=== PATIENT | female | born 1955 | race Two or more races ===

== ENCOUNTER 2024-03-14 07:46 | Emergency (ER) | payer MEDICARE, SELFPAY ==
[2024-03-14 08:06] VITALS: BP 179/77; PULSE 69; RESP 16; TEMP 36.8; O2SAT 95; BMI 32.0
--- NOTE | 2024-03-14 08:12 | XR_ITS ---
Examination: CT abdomen and pelvis without contrast. Coronal 3-D reconstructions. Sagittal 2-D reconstructions. Date and time of exam:March 14, 2024 0833 hrs. Indications: Left flank pain and vomiting beginning last night CTDI: vol (mGy): 10.9 DLP: (mGycm): 582 Technique: Axial images of the abdomen have been obtained, 3 mm slice thickness Intravenous contrast material has not been administered. Low dose protocols were performed. One or more of the following dose reduction techniques were used; automated exposure control, adjustment of the mA and/or KV according to patient size, use of iterative reconstruction technique. Findings: Diffuse fatty infiltration throughout the liver no focal liver or splenic lesions No gallstones No pancreatic mass 4 mm lower pole left renal calculus No hydronephrosis or ureteral calculi Colonic diverticulosis No bladder mass or bladder calculi Normal appendix No bowel obstruction Impression: 4 mm lower pole left renal calculus No hydronephrosis or ureteral calculi
[2024-03-14] MEDS: HYDROcodone/APAP 5/325 TABLET 1 TAB PO (08:27)
[2024-03-14] MEDS: KETOROLAC INJ 30 MG/ML VIAL IM (08:27)
[2024-03-14] MEDS: ONDANSETRON ODT 4 MG TABRAP PO (08:27)
[2024-03-14 09:23] LABS: Basophils % (Auto) 0 % (0-2.5); Eosinophils % (Auto) 0 % (0-10); Hematocrit 42.1 % (36.0-46.0); Hemoglobin 13.8 g/dL (12.0-16.0); Immature Granulocytes % (Auto) 0 % (0-0); Immature Granulocytes Auto 0.02 Thou/mm3 (0.00-0.00); Lymphocytes # (Auto) 1.6 Thou/mm3 (1.0-4.8); Lymphocytes % (Auto) 18 % (10-50); Mean Corpuscular HGB Conc 32.8 g/dl (31.0-37.0); Mean Corpuscular Volume 82 fL (80-100); Monocytes # (Auto) 0.3 Thou/mm3 (0.0-0.8); Monocytes % (Auto) 3 % (0-12); Neutrophils # (Auto) 7.4 Thou/mm3 (1.8-7.7); Neutrophils % (Auto) 79 % (37-80); Nucleated Red Blood Cell % 0 /100 WBC (0); Platelet Count 288 Thou/mm3 (140-440); RDW Standard Deviation 40.1 fL (36.4-46.3); Red Blood Count 5.11 Miln/mm3 (4.00-5.20); White Blood Count 9.4 Thou/mm3 (3.6-11.0)
[2024-03-14 09:51] LABS: Alanine Aminotransferase 22 U/L (10-49); Albumin, Serum 5.1 gm/dL (3.4-4.8); Albumin/Globulin Ratio 1.5 (1.2-2.2); Alkaline Phosphatase 101 U/L (46-116); Anion Gap 8 (7-16); Aspartate Amino Transferase 18 U/L (0-34); BUN/Creatinine Ratio 16 Ratio (12-20); Bilirubin,Total 0.6 mg/dL (0.3-1.2); Blood Urea Nitrogen 13 mg/dL (9-23); Calcium 9.5 mg/dL (8.3-10.6); Calcium (Corrected) 9.5 mg/dL (8.5-10.1); Carbon Dioxide 27.6 mMol/L (20.0-31.0); Chloride 100 mMol/L (98-107); Creatinine (Component) 0.8 mg/dL (0.6-1.3); Estimated Creatinine Clearance 65.7 mL/min (>60); Globulin 3.3 gm/dL (2.3-3.5); Glucose 214 mg/dL (74-106); Lipase 33 U/L (12-53); Osmolality,Calculated 278 (275-295); Potassium 3.9 mMol/L (3.4-5.1); Sodium 136 mMol/L (136-145); Total Protein 8.4 gm/dL (5.7-8.2); eGFR > 60 See Note
[2024-03-14 10:41] LABS: Collection Type, Urine Clean Catch
[2024-03-14 11:15] LABS: Amorphous Crystals,Urine Present (Absent); Bilirubin,Urine Negative (Negative); Blood,Urine Negative (Negative); Clarity,Urine Turbid (Clear/Hazy); Color,Urine Yellow (Lt Yel-Yel); Culture Indicated,Urine Not Indicated; Glucose, Urine 3+ (Negative); Ketones,Urine Negative (Negative); Leukocyte Esterase,Urine Positive (Negative); Nitrite,Urine Negative (Negative); PH,Urine 6.5 (5.0-7.0); Protein,Urine 2+ (Neg - Trace); RBC,Urine 1 /hpf (0-3); Squamous Epithelial Cell,Urine 13 /hpf (0-5); Transitional Epi Cells,Urine < 1 /hpf (0-5); Urobilinogen,Urine Negative mg/dL (0.0-1.0); WBC,Urine 1 /hpf (0-5)
--- NOTE | 2024-03-14 12:06 | PD.EDABDPN ---
ED Abdominal Pain RME/HPI General Chief Complaint: Abdominal Pain Stated complaint: LLQ ABD PAIN, VOMITING, LEFT BUTTOCK NUMB X 1830 Time seen by provider: 03/14/24 08:13 Arrival date/time: 03/14/24 07:46 68-year-old female presents emergency department complains of lower quadrant abdominal pain patient reports episode of vomiting and pain to her left side of her back and hip. Patient presenting started this morning. Patient ports no chest pain or shortness of breath Limitations: no limitations Related Data Home Medications ?Medication ?Instructions ?Recorded ?Confirmed Fish Oil/Borage/Flax/Om3,6,9#1 1 cap PO QDAY ##0 01/21/14 10/09/17 ([facility] 3-6-9) Cassandra Root * 250 mg PO QDAY #0 caps 01/21/14 10/09/17 Lecithin 1,200 mg PO QDAY ##0 01/21/14 10/09/17 Magnesium Amino Acid Chelate 133 mg PO QDAY ##0 01/21/14 10/09/17 (Magnesium) VITAMIN E MIXED (VITAMIN E) 400 iu PO QDAY ##0 01/21/14 10/09/17 black cohosh 40 mg tablet 200 mg PO QDAY ##0 01/21/14 10/09/17 calcium carbonate (Oyster Shell 333 mg PO QDAY ##0 01/21/14 10/09/17 Calcium) cyanocobalamin (vitamin B-12) 1,000 mcg PO QDAY #0 tabs 01/21/14 10/09/17 1,000 mcg tablet (Vitamin B-12) magnesium 200 mg tablet 400 mg PO QDAY #0 tabs 01/21/14 10/09/17 zinc 50 mg tablet (Zinc Chelated) ##0 01/21/14 Previous Rx's ?Medication ?Instructions ?Recorded amoxicillin 875 mg-potassium 1 tab PO Q12H #20 tabs 10/09/17 clavulanate 125 mg tablet (Augmentin) cyclobenzaprine 10 mg tablet 10 mg PO TID PRN muscle spasm 10 03/14/24 days #30 tab-caps ibuprofen 800 mg tablet 800 mg PO TID PRN pain #30 tabs 03/14/24 Allergies Allergy/AdvReac Type Severity Reaction Status Date / Time Sulfa (Sulfonamide Allergy Intermediate RASH AND Verified 03/14/24 07:48 Antibiotics) HIVES SMOKED OYSTERS Allergy Intermediate rash, Uncoded 03/14/24 07:48 itching Review of Systems Review of Systems Systems Reviewed: All systems reviewed, normal except as documented Constitutional Constitutional: Reports system reviewed and no additional complaints, except as documented, Denies fever(s) and Denies headache(s) Eyes Eyes: Reports system reviewed and no additional complaints, except as documented and Denies blurry vision ENT Ears, Nose, Mouth, and Throat: Reports system reviewed and no additional complaints, except as documented, Denies headache(s), Denies nasal congestion and Denies nasal discharge Cardiovascular Cardiovascular: Reports system reviewed and no additional complaints, except as documented, Denies chest pain and Denies dyspnea Respiratory Respiratory: Reports system reviewed and no additional complaints, except as documented, Denies chest congestion, Denies cough and Denies dyspnea Gastrointestinal Gastrointestinal: Reports system reviewed and no additional complaints, except as documented, Reports abdominal pain, Denies loose stools, Reports nausea and Reports vomiting Integumentary/Breasts Skin/Breast: Reports system reviewed and no additional complaints, except as documented and Denies rash Neurologic Neurologic: Reports system reviewed and no additional complaints, except as documented, Reports as per HPI and Denies headache(s) ED Exam General Limitations: Present no limitations General appearance: Present alert and in no apparent distress Head Head exam: Present atraumatic, normocephalic and normal inspection Eye Eye exam: Present normal appearance, PERRL and EOMI ENT ENT exam: Present normal exam, normal oropharynx and mucous membranes moist Neck Neck exam: Present normal inspection, full ROM and trachea midline Chest Chest inspection: Present normal inspection and symmetric chest wall rise Respiratory Respiratory exam: Present normal lung sounds bilaterally Cardiovascular Cardiovascular exam: Present regular rate, normal rhythm and normal heart sounds Abdominal Exam Abdominal exam: Present soft and normal bowel sounds; Absent distention, tenderness, Pradhan's sign or tenderness at McBurney's Point Abdominal tenderness: Absent RUQ or RLQ Extremities Exam Extremities exam: Present normal inspection and full ROM Back Exam Back exam: Present normal inspection and full ROM Neurological Exam Neurological exam: Present alert, oriented X3, CN II-XII intact, normal gait and reflexes normal; Absent motor sensory deficit Psychiatric Psychiatric exam: Present normal affect and normal mood Skin Skin exam: Present warm, dry, intact and normal color; Absent rash Course Quality Measures none Orders Category Date Time Status CT abdomen pelvis wo con Stat Exams 03/14/24 08:12 Completed CBC Stat Lab 03/14/24 09:12 Completed Comprehensive Metabolic Panel Stat Lab 03/14/24 09:12 Completed Lipase Stat Lab 03/14/24 09:12 Completed UA, C/S IF [Urinalysis, C/S if Indicated] Stat Lab 03/14/24 09:10 Completed HYDROcodone*/APAP 5/325 [[place] 5/325] Med 03/14/24 08:12 Discontinued 1 tab PO X1 ONE Ketorolac Inj [Toradol Inj] Med 03/14/24 08:12 Discontinued 30 mg IM X1 ONE Ondansetron Odt [Zofran Odt] Med 03/14/24 08:12 Discontinued 4 mg PO X1 ONE Vital Signs Vital signs: Vital Signs Temperature 98.2 F 03/14/24 08:06 Pulse Rate 69 03/14/24 08:06 Respiratory Rate 16 03/14/24 08:06 Blood Pressure 179/77 H 03/14/24 08:06 Pulse Oximetry (%) 95 03/14/24 08:06 Oxygen Delivery Method Room Air 03/14/24 08:06 O2 saturation 95% room air within normal limits Abdominal Pain MDM MDM Narrative MDM Narrative:: 68-year-old female presents emergency department complains of lower quadrant abdominal pain patient reports episode of vomiting and pain to her left side of her back and hip. Patient presenting started this morning. Patient reports no chest pain or shortness of breath. Patient reports no saddle anesthesia no loss of bowel or bladder patient wants a steady gait On exam patient well-appearing patient's not appear toxic Lab work and CT scan obtained no acute emergent findings noted Patient given medication here Time reevaluation patient reports she feels much better after medication Patient discharged home in no distress to follow-up with primary care doctor in the next 24 to 48 hours and for any worsening symptoms to return to the ER immediately Patient data External records reviewed:: [facility] previous records Clinical information provided by:: patient Social determinants that could affect healthcare access:: none Patient has the following chronic illnesses:: See history How is presenting disease/condition affected by chronic disease/condition?: uneffected by Evaluation data The following diagnostics were reviewed and interpreted by me:: lab results and radiology exam(s) Lab and/or radiology exams considered but not ordered:: Labs are obtained Interpretation Summary: By me Medications / Prescriptions Medications or Prescriptions considered but not ordered:: Given Medication administrations:: Medication Administration History Discontinued Medications Hydrocodone Bitart/Acetaminophen (Hydrocodone/Apap 5/325 Tablet) 1 tab PO X1 ONE Stop: 03/14/24 08:13 Last Admin: 03/14/24 08:27 Dose: 1 tab Documented By: DENICE Ketorolac Tromethamine (Ketorolac Inj 30 Mg/Ml Vial) 30 mg IM X1 ONE Stop: 03/14/24 08:13 Last Admin: 03/14/24 08:27 Dose: 30 mg Documented By: DENICE Ondansetron HCl (Ondansetron Odt 4 Mg Tabrap) 4 mg PO X1 ONE; Protocol Stop: 03/14/24 08:13 Last Admin: 03/14/24 08:27 Dose: 4 mg Documented By: DENICE Given Consultations Consultation(s) initiated? (list below): No Diagnosis Differential diagnosis abdominal pain: abdominal pain, acute appendicitis, gastroenteritis and pancreatitis Most likely diagnosis given after review of the tests above:: Abdominal pain Admission Indicated Admission indicated?: not indicated Admission Request Was there a request for admission?: No Disposition Plan Disposition Plan: Discharge Discharge Attestation Discharge Attestation: The patient and all family members were given an opportunity to ask questions and understood the discharge instructions. Discharge instructions specifically effects, indications for sooner follow up or return to the emergency department, and the expected course of current diagnosis. Patient condition: Stable Discharge Plan Plan Patient Disposition: HOME (Self Care) Disposition Comment: Stable Prescriptions/Referrals Prescriptions/Med Rec: New cyclobenzaprine 10 mg tablet 10 mg PO TID PRN (Reason: muscle spasm) 10 Days Qty: 30 0RF ibuprofen 800 mg tablet 800 mg PO TID PRN (Reason: pain) Qty: 30 0RF No Action cyanocobalamin (vitamin B-12) [Vitamin B-12] 1,000 MCG tablet 1,000 mcg PO QDAY Qty: 0 calcium carbonate [Oyster Shell Calcium] 1 TAB tablet 333 mg PO QDAY Qty: 0 zinc [Zinc Chelated] 50 MG tablet Qty: 0 magnesium 200 MG tablet 400 mg PO QDAY Qty: 0 black cohosh 40 MG tablet 200 mg PO QDAY Qty: 0 Fish Oil/Borage/Flax/Om3,6,9#1 ([facility] [place] [facility] 3-6-9) 400 MG capsule 1 cap PO QDAY Qty: 0 Cassandra Root * 250 MG capsule 250 mg PO QDAY Qty: 0 Lecithin 1,200 MG capsule 1,200 mg PO QDAY Qty: 0 Magnesium Amino Acid Chelate (Magnesium) 100 MG tablet 133 mg PO QDAY Qty: 0 VITAMIN E MIXED (VITAMIN E) 200 UNIT tablet 400 iu PO QDAY Qty: 0 amoxicillin-pot clavulanate [Augmentin] 875-125 mg tablet 1 tab PO Q12H Qty: 20 0RF Referrals: Aleyda Almeida, [Primary Care Provider] - In 1 week Problem List Clinical Impression: Acute pain of left hip, Left flank pain, Fatty liver Patient/Caregiver Discharge Instructions Education Materials: Abdominal Pain Additional Instructions: Please follow up with your primary care doctor in the next 24-48hrs for any worsening symptoms return here immediately Print Language: Hebrew Stand Alone Forms: Aimee Award Info., Patient Portal Info Letter PA/DISPATCH OFFICER Supervising Physician PA/JACOB Supervising Physician: Dr calero
== END 2024-03-14 12:14 | disposition home or self-care (01) ==
PROVIDERS: Nurse Practitioner Primary Care; Emergency Provider Emergency Medicine; PCP Internal Medicine
DX: K76.0 Fatty (change of) liver, not elsewhere classified (principal); M25.552 Pain in left hip; R10.9 Unspecified abdominal pain
CPT/HCPCS: 36415; 74176; 80053; 81001; 83690; 85025; 96372; 99284; J1885; Q0162; A9270